=== PATIENT | male | born 1955 | race Caucasian/White ===

== ENCOUNTER 2016-10-16 00:07 | Inpatient (IN) | payer BC, OTHER ==
[~2016-10-16] VITALS: Ht 188 cm; Wt 114.8 kg
[2016-10-16] MEDS ORDERED: SODIUM CHLORIDE 0.9% 500ML 500 ML IV STA (00:27)
[2016-10-16] MEDS ORDERED: MoRPHine SULFATE 4 MG/ML 1 ML CARP\\VIAL IV STA (00:27)
[2016-10-16] MEDS ORDERED: ONDANSETRON INJ 2 MG/ML 2 ML VIAL IV STA (00:27)
[2016-10-16 00:43] LABS: ISTAT CREATININE 1.2 mg/dl (0.6-1.3); ISTAT HEMOGLOBIN 15.6 g/dl (14.0-18.0); ISTAT IONIZED CALCIUM 1.2 mmol/l (1.12-1.32)
[2016-10-16] MEDS ORDERED: OPTIRAY 320 IV PRN ×2 (00:45→11:30)
[2016-10-16 00:53] LABS: BASO % 0.3 %; BASO ABS # 0.03 K/uL (0-0.2); COMPLETE YES; EOS % 2.7 %; HEMATOCRIT 47.2 % (42-52); IG% 0.8 %; LYMPH % 28.7 %; MEAN CORPUSCULAR HEMOGLOBIN 32.9 pg (25-34); MEAN PLATELET VOLUME 11.3 fL (7.4-10.4); MONO % 8.8 %; NEUT % 58.7 %; PLATELET COUNT 230 K/uL (130-400); RED BLOOD COUNT 5.02 M/uL (4.7-6.1); WHITE BLOOD COUNT 11.14 K/uL (4.8-10.8)
[2016-10-16] MEDS ORDERED: MULT-506 PO (00:53)
[2016-10-16] MEDS ORDERED: CYAN100020 PO (00:54)
[2016-10-16] MEDS ORDERED: ZOLP10TA PO (00:55)
[2016-10-16] MEDS ORDERED: OXYC1TAB3 PO (00:55)
[2016-10-16 01:07] LABS: PARTIAL THROMBOPLASTIN RATIO 1.1; PROTHROMBIN TIME (PATIENT) 10.4 SECONDS (9.0-12.0)
[2016-10-16 01:13] LABS: ALT/SGPT 29 U/L (12-78); AST/SGOT 9 U/L (15-37); BLOOD UREA NITROGEN 20 mg/dl (7-18); BUN/CREATININE RATIO 16.7 (10-20); CALCIUM 8.7 mg/dl (8.5-10.1); CARBON DIOXIDE 31 mmol/L (21-32); CHLORIDE 102 mmol/L (98-107); GLUCOSE 111 mg/dl (70-99); POTASSIUM 3.8 mmol/L (3.5-5.1); SODIUM 140 mmol/L (136-145)
[2016-10-16 01:19] LABS: ALKALINE PHOSPHATASE 91 U/L (45-117)
[2016-10-16] MEDS ORDERED: HYDROmorphone INJ 1 MG/ML SYR IV STA (01:22)
[2016-10-16 01:25] LABS: C-REACTIVE PROTEIN 2.41 mg/dl (0-0.29)
[2016-10-16] MEDS ORDERED: METRONIDAZOLE 500MG / 100ML NSS IV STA (02:45)
[2016-10-16] MEDS ORDERED: CIPROFLOXACIN 400MG / 200ML D5W IV STA (02:45)
[2016-10-16] MEDS ORDERED: DiphenhydrAMINE HCL 50 MG/ML VIAL IV PRN (03:30)
[2016-10-16] MEDS ORDERED: MoRPHine SULFATE 2 MG/ML CARP IV PRN (03:30)
[2016-10-16] MEDS ORDERED: ONDANSETRON INJ 2 MG/ML 2 ML VIAL IV PRN (03:30)
[2016-10-16] MEDS ORDERED: ACETAMINOPHEN IV 100 ML IV PRN (03:30)
[2016-10-16] MEDS ORDERED: DICLOFENAC SOD 1% GEL 100 GM TUBE EXT STA (03:31)
[2016-10-16] MEDS ORDERED: PANTOprazole INJ 40 MG in SYRINGE 0 ML IV STA (03:31)
--- NOTE | 2016-10-16 04:14 | EMERGENCY ROOM VISIT NOTE ---
ED Visit Note First contact with patient: 00:12 I have personally evaluated and examined this patient. I agree with assessment and plan of Angelia Lanier PA-C. 61 yr old male with left lower chest/LUQ abdominal pain. Much improved on my evaluation of patient with only some discomfort with moving around. 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 Lactic acid normal and patient stable/comfortable. Does not examine like infarcted bowel. Will bring in for further monitoring/treatment.
--- NOTE | 2016-10-16 04:27 | History and Physical ---
History & Physical Date & Time of Service: Oct 16, 2016 at 04:10 Chief Complaint: Chest Pain Primary Care Physician: No Doctor, Assigned History of Present Illness Source: patient, family Social History Smoking Status: Never Smoker Smokeless Tobacco Use: No Alcohol Use: none Drug Use: none Marital Status: Housing status: lives with family Occupational Status: employed Multi-Drug Resistant Organisms History of MDRO: No Allergies Coded Allergies: No Known Allergies (Unverified , 10/16/16) Home Medications Scheduled Cyanocobalamin (Vitamin B12), PO DAILY Multivitamin (Multivitamin), 1 TAB PO DAILY Scheduled PRN Oxycodone Ir (Roxicodone Ir), 5 MG PO DIRECTED PRN for Pain Zolpidem Tartrate (Ambien), 10 MG PO HS PRN for Sleep Review of Systems The patient denies palpitations, lower extremity swelling, vision change, hearing change, sore throat, fevers, chills, sweats, weight change, fatigue, nausea, vomiting, pelvic pain, blood in urine or stool, dysuria, urinary frequency or urgency, lightheadedness, dizziness, headache, memory loss, rash, abnormal bruising or bleeding, imbalance, focal or generalized weakness, numbness or tingling in arms or legs, arthralgias or myalgias, back or neck pain , night sweats, or allergy symptoms. The review of systems is otherwise negative other than for that already noted above, and at least 10 systems have been reviewed. Physical Exam Vital Signs Date Time Temp Pulse Resp B/P Pulse Ox O2 Delivery O2 Flow Rate FiO2 10/16/16 03:58 37.3 73 22 138/94 96 10/16/16 03:47 73 22 96 Nasal Cannula 2.0 10/16/16 03:29 138/94 10/16/16 03:17 71 22 96 10/16/16 02:58 150/102 10/16/16 02:47 61 15 96 10/16/16 02:28 126/87 10/16/16 02:17 62 14 95 10/16/16 02:02 120/97 10/16/16 01:47 78 13 97 10/16/16 01:42 71 18 96 Nasal Cannula 2.0 10/16/16 01:28 127/83 10/16/16 01:12 80 16 139/88 96 Nasal Cannula 2.0 10/16/16 01:12 83 16 97 10/16/16 01:10 139/88 10/16/16 00:37 82 16 136/95 95 Nasal Cannula 2.0 10/16/16 00:37 95 10/16/16 00:36 10/16/16 00:21 91 20 127/104 95 Nasal Cannula 2.0 10/16/16 00:20 88 21 134/95 95 Room Air 2.0 10/16/16 00:20 127/104 10/16/16 00:19 96 Nasal Cannula 2.0 10/16/16 00:19 134/95 10/16/16 00:17 79 10/16/16 00:13 37.3 88 34 150/127 94 Room Air 10/16/16 00:12 Room Air 10/16/16 00:11 150/127 The patient is awake, well-developed and adequately nourished, alert and oriented 3, normocephalic and atraumatic, lying in bed and in no acute distress while lying still. HEENT--PERRL, EOMI, mucous membranes moist, and oropharynx normal. Neck--supple, no JVD or bruits, thyroid normal, trachea midline, no adenopathy. Heart--normal S1 and S2, no extra beats, no murmurs, rubs or gallops. Lungs--clear bilaterally with good air movement, no respiratory distress, no accessory muscle use. Abdomen--normal bowel sounds and soft, nontender and nondistended, no hernias or masses, no organomegaly. Extremities--no cyanosis, clubbing or edema. There are good distal pulses b/l. Dermatologic--normal skin turgor, normal color, warm and dry, no abnormal lymph nodes, no rash. Neurologic--cranial nerves II through XII grossly intact. Psychiatric--normal affect. Diagnostics Laboratory Results Results Past 24 Hours Test 10/16/16 00:16 10/16/16 00:24 10/16/16 00:32 10/16/16 01:42 Range/Units White Blood Count 11.14 4.8-10.8 K/uL Red Blood Count 5.02 4.7-6.1 M/uL Hemoglobin 16.5 14.0-18.0 g/dL Hematocrit 47.2 42-52 % Mean Corpuscular Volume 94.0 80-100 fL Mean Corpuscular Hemoglobin 32.9 25-34 pg Mean Corpuscular Hemoglobin Concent 35.0 32-36 g/dl Platelet Count 230 130-400 K/uL Mean Platelet Volume 11.3 7.4-10.4 fL Neutrophils (%) (Auto) 58.7 % Lymphocytes (%) (Auto) 28.7 % Monocytes (%) (Auto) 8.8 % Eosinophils (%) (Auto) 2.7 % Basophils (%) (Auto) 0.3 % Neutrophils # (Auto) 6.54 1.4-6.5 K/uL Lymphocytes # (Auto) 3.20 1.2-3.4 K/uL Monocytes # (Auto) 0.98 0.11-0.59 K/uL Eosinophils # (Auto) 0.30 0-0.5 K/uL Basophils # (Auto) 0.03 0-0.2 K/uL RDW Standard Deviation 46.2 36.4-46.3 fL RDW Coefficient of Variation 13.6 11.5-14.5 % Immature Granulocyte % (Auto) 0.8 % Immature Granulocyte # (Auto) 0.09 0.00-0.02 K/uL Erythrocyte Sedimentation Rate 10 0-14 mm/hr Prothrombin Time 10.4 9.0-12.0 SECONDS Prothromb Time International Ratio 1.0 0.9-1.1 Activated Partial Thromboplast Time 27.8 21.0-31.0 SECONDS Partial Thromboplastin Ratio 1.1 Sodium Level 140 136-145 mmol/L Potassium Level 3.8 3.5-5.1 mmol/L Chloride Level 102 98-107 mmol/L Carbon Dioxide Level 31 21-32 mmol/L Anion Gap 7.0 21.0 16-25 mmol/L Blood Urea Nitrogen 20 7-18 mg/dl Creatinine 1.20 0.60-1.40 mg/dl Est Creatinine Clear Calc Drug Dose 86.8 ml/min Estimated GFR () 75.2 Estimated GFR (Non- 64.9 BUN/Creatinine Ratio 16.7 10-20 Random Glucose 111 70-99 mg/dl Calcium Level 8.7 8.5-10.1 mg/dl Total Bilirubin 1.2 0.2-1 mg/dl Direct Bilirubin 0.2 0-0.2 mg/dl Aspartate Amino Transf (AST/SGOT) 9 15-37 U/L Alanine Aminotransferase (ALT/SGPT) 29 12-78 U/L Alkaline Phosphatase 91 45-117 U/L Total Creatine Kinase 48 39-308 U/L Creatine Kinase MB < 0.5 0.5-3.6 ng/ml Creatine Kinase MB Ratio 0-3.0 Troponin I < 0.015 0-0.045 ng/ml C-Reactive Protein 2.41 0-0.29 mg/dl Total Protein 7.8 6.4-8.2 gm/dl Albumin 3.8 3.4-5.0 gm/dl Lipase 248 73-393 U/L Bedside Hemoglobin 15.6 14.0-18.0 g/dl Bedside Hematocrit 46 42-52 % Bedside Sodium 140 135-144 mEq/L Bedside Potassium 3.9 3.3-5.0 mEq/L Bedside Chloride 98 101-112 mEq/L Bedside Total CO2 26 24-31 mEq/l Bedside Blood Urea Nitrogen 23 7-18 mg/dl Bedside Creatinine 1.2 0.6-1.3 mg/dl Bedside Glucose (other) 113 70-99 mg/dl Bedside Ionized Calcium (Florinda) 1.20 1.12-1.32 mmol/l Bedside Troponin I 0.000 0-0.045 ng/ml Bedside Lactic Acid Venous 0.82 0.90-1.70 mmol/L Test 10/16/16 03:26 10/16/16 03:50 Range/Units Creatine Kinase MB Ratio 0-3.0 Diagnostic Radiology Chest x-ray shows no acute findings. 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 Normal EKG Impression Assessment and Plan Left abdomen, lower chest wall and flank pain--patient reports that symptoms are very severe and sharp, with any type of movement. The symptoms initially began after he was laughing heavily. He also does take anywhere from 400 to 1200 mg of ibuprofen daily due to persistent pain status post right total knee arthroplasty since July. He'll be admitted to the telemetry unit for serial cardiac enzymes, cardiac rhythm monitoring, and a 2-D echocardiogram with Dopplers. We'll also consult GI, with concerns regarding a possible ulcer due to excessive use of NSAIDs without GI protection. His notes that he takes several Tums daily. We'll place on Protonix 40 mg IV daily, and keep nothing by mouth for any possible procedures. We'll place on Voltaren gel, to Apply topically overinvolved area. Do not see any signs of rash to suggest shingles infection. 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 Chan, who felt the patient can be admitted to the medical service. Question of a peripherally located air within the abdominal cavity--case was reviewed by Dr. Singh from surgery, who felt there was no acute issue there, and the patient no symptoms referable to the abdomen. Level of Care Telemetry Advanced Directives Existing Advance Directive: No Existing Living Will: No Existing Power of Plate Grainer Apprentice: No Resuscitation Status FULL RESUSCITATION VTE Prophylaxis VTE Risk Assessment Done? Y/N: Yes Risk Level: Moderate Given or contraindicated: SCD's Social Service Consult None Apply
[2016-10-16] MEDS ORDERED: IV FLUIDS COMPLETED PRN (04:30)
[2016-10-16 05:13] VITALS: BP 132/84; PULSE 63; TEMP 36.8; O2SAT 95; Ht 188 cm; Wt 114.8 kg
--- NOTE | 2016-10-16 05:31 | Medical Consult ---
Consultation Date of Consultation: Oct 16, 2016. Attending Physician: Chad Quiroz M.D. Reason for Consultation: possible early pneumatosis intestinalis History of Present Illness to ER w/ Lt lower lateral/flank chest pain laly with movement- after laughing episode. CT found possible pelvic bubbles in bowel wall vs intraluminal air. Pt has no abd sxs, no lower abd tenderness. Lactate normal Social History Smoking Status: Never Smoker Smokeless Tobacco Use: No Alcohol Use: none Drug Use: none Marital Status: Occupation Status: employed Allergies Coded Allergies: No Known Allergies (Unverified , 10/16/16) Current Inpatient Medications Current Inpatient Medications Medications (Trade) Dose Ordered Sig/Flynn Route Start Time Stop Time Status Last Admin Dose Admin Ioversol 100 ml 100 ml UD PRN IV 10/16/16 00:45 10/20/16 00:44 Potassium Chloride/Sodium Chloride (Nss + 20meq KCl 1000ml) 1,000 ml @ 100 mls/hr Q10H IV 10/16/16 04:45 11/15/16 04:44 Ondansetron HCl 4 mg 4 mg Q6H PRN IV 10/16/16 03:30 11/15/16 03:29 Acetaminophen (Ofirmev Iv) 100 ml @ 400 mls/hr Q8H PRN IV 10/16/16 03:30 11/15/16 03:29 Diphenhydramine HCl (Benadryl Inj) 25 mg Q4H PRN IV 10/16/16 03:30 11/15/16 03:29 Morphine Sulfate (MoRPHine SULFATE INJ) 2 mg Q2H PRN IV 10/16/16 03:30 10/30/16 03:29 Morphine Sulfate 4 mg 4 mg Q2H PRN IV 10/16/16 03:30 10/30/16 03:29 Pantoprazole Sodium/Syringe (Protonix Inj/ Syringe) 10 ml @ 5 mls/min DAILY@11 IV 10/16/16 11:00 11/15/16 10:59 Diclofenac Sodium (Voltaren 1% Top Gel) 1 appln QID EXT 10/16/16 09:00 11/15/16 08:59 Miscellaneous (Iv Fluids Completed) 1 ea PRN PRN N/A 10/16/16 04:30 10/16/17 04:29 Review of Systems Constitutional: No chills, No fever Eyes: No eye pain Respiratory: No cough, No shortness of breath, No sputum Cardiovascular: + chest pain Abdomen: No nausea, No pain, No vomiting Musculoskeletal: + joint pain Genitourinary - Male: No hematuria Neurologic: No memory loss Endocrine: No fatigue Integumentary: No rash Physical Exam Date Time Temp Pulse Resp B/P Pulse Ox O2 Delivery O2 Flow Rate FiO2 10/16/16 03:58 37.3 73 22 138/94 96 10/16/16 03:47 73 22 96 Nasal Cannula 2.0 10/16/16 03:29 138/94 10/16/16 03:17 71 22 96 10/16/16 02:58 150/102 10/16/16 02:47 61 15 96 10/16/16 02:28 126/87 10/16/16 02:17 62 14 95 10/16/16 02:02 120/97 10/16/16 01:47 78 13 97 10/16/16 01:42 71 18 96 Nasal Cannula 2.0 10/16/16 01:28 127/83 10/16/16 01:12 80 16 139/88 96 Nasal Cannula 2.0 10/16/16 01:12 83 16 97 10/16/16 01:10 139/88 10/16/16 00:37 82 16 136/95 95 Nasal Cannula 2.0 10/16/16 00:37 95 10/16/16 00:36 10/16/16 00:21 91 20 127/104 95 Nasal Cannula 2.0 10/16/16 00:20 88 21 134/95 95 Room Air 2.0 10/16/16 00:20 127/104 10/16/16 00:19 96 Nasal Cannula 2.0 10/16/16 00:19 134/95 10/16/16 00:17 79 10/16/16 00:13 37.3 88 34 150/127 94 Room Air 10/16/16 00:12 Room Air 10/16/16 00:11 150/127 General Appearance: no apparent distress Head: atraumatic Eyes: sclerae normal Neck: supple Respiratory/Chest: no respiratory distress Cardiovascular: regular rate, rhythm Abdomen/GI: normal bowel sounds, non tender, soft Back: normal inspection, + left CVA tenderness Extremities/Musculoskelatal: normal inspection Neurologic/Psych: alert, normal mood/affect Skin: no rash Laboratory Results Last 24 Hours Test 10/16/16 00:16 10/16/16 00:24 10/16/16 00:32 10/16/16 01:42 White Blood Count 11.14 K/uL Red Blood Count 5.02 M/uL Hemoglobin 16.5 g/dL Hematocrit 47.2 % Mean Corpuscular Volume 94.0 fL Mean Corpuscular Hemoglobin 32.9 pg Mean Corpuscular Hemoglobin Concent 35.0 g/dl Platelet Count 230 K/uL Mean Platelet Volume 11.3 fL Neutrophils (%) (Auto) 58.7 % Lymphocytes (%) (Auto) 28.7 % Monocytes (%) (Auto) 8.8 % Eosinophils (%) (Auto) 2.7 % Basophils (%) (Auto) 0.3 % Neutrophils # (Auto) 6.54 K/uL Lymphocytes # (Auto) 3.20 K/uL Monocytes # (Auto) 0.98 K/uL Eosinophils # (Auto) 0.30 K/uL Basophils # (Auto) 0.03 K/uL RDW Standard Deviation 46.2 fL RDW Coefficient of Variation 13.6 % Immature Granulocyte % (Auto) 0.8 % Immature Granulocyte # (Auto) 0.09 K/uL Erythrocyte Sedimentation Rate 10 mm/hr Prothrombin Time 10.4 SECONDS Prothromb Time International Ratio 1.0 Activated Partial Thromboplast Time 27.8 SECONDS Partial Thromboplastin Ratio 1.1 Sodium Level 140 mmol/L Potassium Level 3.8 mmol/L Chloride Level 102 mmol/L Carbon Dioxide Level 31 mmol/L Anion Gap 7.0 mmol/L 21.0 mmol/L Blood Urea Nitrogen 20 mg/dl Creatinine 1.20 mg/dl Est Creatinine Clear Calc Drug Dose 86.8 ml/min Estimated GFR () 75.2 Estimated GFR (Non- 64.9 BUN/Creatinine Ratio 16.7 Random Glucose 111 mg/dl Calcium Level 8.7 mg/dl Total Bilirubin 1.2 mg/dl Direct Bilirubin 0.2 mg/dl Aspartate Amino Transf (AST/SGOT) 9 U/L Alanine Aminotransferase (ALT/SGPT) 29 U/L Alkaline Phosphatase 91 U/L Total Creatine Kinase 48 U/L Creatine Kinase MB < 0.5 ng/ml Creatine Kinase MB Ratio Troponin I < 0.015 ng/ml C-Reactive Protein 2.41 mg/dl Total Protein 7.8 gm/dl Albumin 3.8 gm/dl Lipase 248 U/L Bedside Hemoglobin 15.6 g/dl Bedside Hematocrit 46 % Bedside Sodium 140 mEq/L Bedside Potassium 3.9 mEq/L Bedside Chloride 98 mEq/L Bedside Total CO2 26 mEq/l Bedside Blood Urea Nitrogen 23 mg/dl Bedside Creatinine 1.2 mg/dl Bedside Glucose (other) 113 mg/dl Bedside Ionized Calcium (Florinda) 1.20 mmol/l Bedside Troponin I 0.000 ng/ml Bedside Lactic Acid Venous 0.82 mmol/L Test 10/16/16 03:50 Total Creatine Kinase 33 U/L Creatine Kinase MB < 0.5 ng/ml Creatine Kinase MB Ratio Troponin I < 0.015 ng/ml Assessment & Plan 10/16/16- for evaluation of Lt lower, lateral chest pain. No abd sxs- do not think pt has ischemic bowel or significant pneumatosis intestinalis. Will follow as needed and review scan with our radiologist
[2016-10-16] MEDS: NSS + 20MEQ KCL 1000ML 1,000 ML IV SCH ×2 (05:50→14:21)
--- NOTE | 2016-10-16 07:11 | DIAGNOSTIC IMAGING REPORT ---
SINGLE VIEW CHEST CLINICAL HISTORY: Atypical chest pain. FINDINGS: An AP, portable, upright chest radiograph is obtained. No prior studies are available for comparison at the time of dictation. The examination is degraded by portable technique and patient rotation. The heart is enlarged. The pulmonary vasculature is noncongested. There are low lung volumes with bibasilar atelectasis. No airspace consolidation or large pleural effusion is identified. No pneumothorax is seen. The bony thorax is grossly intact. Fusion hardware is partially imaged in the lower cervical spine. IMPRESSION: 1. Cardiomegaly without radiographic evidence of congestive failure. 2. Low lung volumes with bibasilar atelectasis. There is no airspace consolidation typical for pneumonia or large pleural effusion. Electronically signed by: Brooks Spencer M.D. 10/16/2016 7:09 AM Dictated Date/Time: 10/16/2016 7:08 AM
--- NOTE | 2016-10-16 07:37 | DIAGNOSTIC IMAGING REPORT ---
CT ANGIOGRAM OF THE CHEST, ABDOMEN, AND PELVIS COMBO CLINICAL HISTORY: Atypical chest pain. COMPARISON STUDY: Chest x-ray dated 10/16/2016. TECHNIQUE: Before and following the IV administration of 118 cc of Optiray 320, CT angiogram of the chest, abdomen, and pelvis was performed from the thoracic inlet to the proximal femora. Images are reviewed in the axial, sagittal, and coronal planes. 3-D MIPS images are created and assessed. IV contrast was administered without complication. Automated dose control exposure was utilized. CT DOSE: 3193.33 mGy.cm FINDINGS: CHEST: Thyroid: Imaged portions of the thyroid gland are normal in size and attenuation. Thoracic aorta: No intramural hematoma is identified on the unenhanced series. There is minimal atherosclerotic calcification of the thoracic aorta, which is normal in course caliber and demonstrates standard 3-vessel arch anatomy. No dissection is seen. The arch vessels are widely patent. Heart: The heart is enlarged and without pericardial effusion. There are coronary artery calcifications. The pulmonary trunk is normal in caliber. The pulmonary vessels are not well opacified. Lungs and pleural spaces: There are low lung volumes and bibasilar atelectasis. A trace left pleural effusion is seen. The trachea and central airways are clear. Mediastinum: There is no mediastinal lymphadenopathy. Elisa: Clear. Axillae: There is no axillary lymphadenopathy. Bony thorax: The bony thorax appears intact. No destructive bony lesions are identified. Fusion hardware is noted in the lower cervical spine. ABDOMEN AND PELVIS: Liver: The contrast-enhanced liver is normal in size, contour, and attenuation. There is no intrahepatic biliary ductal dilatation. A 9 mm hypervascular focus is noted in the right lower image #300. The main portal veins appear patent. Mixing artifact is incidentally noted in the superior mesenteric vein. Gallbladder: Unremarkable. Spleen: Normal in size and attenuation noting heterogeneous arterial phase enhancement. Pancreas: Unremarkable. Adrenal glands: Unremarkable. Kidneys: No renal calculi are identified on the unenhanced series. The contrast enhanced kidneys are normal in size and without hydronephrosis. The kidneys enhance symmetrically. Abdominal aorta and iliac arteries: There is mild atherosclerotic calcification of the abdominal aorta and iliac arteries. The abdominal aorta is normal in caliber. The abdominal aorta and iliac arteries are widely patent. No dissection is seen. Major branches of the abdominal aorta: The celiac trunk, superior mesenteric, and inferior mesenteric arteries are widely patent. 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 There is a focal/contained dissection. The vessel is widely patent. The dissection originates approximately 2.7 cm from the abdominal aorta and extends at least 2.5 cm in length. This is best seen on axial image #361. Hepatic arterial anatomy is conventional. The splenic artery is patent. Single bilateral renal arteries are widely patent. Stomach and bowel: There is a small hiatal hernia. The stomach and duodenum are otherwise normal in configuration. There is no bowel obstruction. There are scattered colonic diverticula without CT evidence of acute diverticulitis. Colonic interposition is incidentally noted. The appendix is well-visualized and normal. Peritoneum: There is no intraperitoneal free air or abdominal ascites. There is a fat-containing umbilical hernia. Lymphadenopathy: None. Pelvic viscera: The bladder, prostate, and seminal vesicles are normal as visualized. Skeletal structures: There is mild lumbosacral spondylosis. No destructive bony lesions are seen. IMPRESSION: 1. There is no aneurysm or dissection identified involving the thoracic or abdominal aorta. 2. 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 The vessel is widely patent. 3. Otherwise unremarkable CT angiogram of the major branches of the abdominal aorta. 4. Low lung volumes and significant bibasilar atelectasis. 5. Trace left pleural effusion. 6. There are no acute infectious or inflammatory findings in the abdomen or pelvis. 7. There is a 9 mm hypervascular focus in the right lobe of the liver. This is indeterminant and may represent a flash filling hemangioma. Consider follow-up with a nonemergent ultrasound of the liver for further assessment. 8. Cardiomegaly. 9. Additional findings as above. Electronically signed by: Brooks Spencer M.D. 10/16/2016 7:35 AM Dictated Date/Time: 10/16/2016 7:22 AM
[2016-10-16 08:00] VITALS: BP 130/85; PULSE 65; TEMP 36.8; O2SAT 97
[2016-10-16] MEDS: DICLOFENAC SOD 1% GEL 100 GM TUBE EXT SCH ×4 (08:35→20:51)
[2016-10-16] MEDS ORDERED: PERFLUTREN LIPID MICROSPHERE (DEFINITY) IV ONE (09:43)
--- NOTE | 2016-10-16 10:26 | Gastrointestinal Consultation ---
Gastrointestinal Consultation Date of Consultation: Oct 16, 2016 Attending Physician: Dr. Vazquez Consulting Physician: Hodan Dillon PA-C Reason for Consultation: Flank pain, NSAID use History of Present Illness Nima is a 61 year old male who presents to the hospital with left lower chest wall and flank pain that he describes as sharp and severe. Pain is worsened with movement, but is not reported to be worsened with food. He reports that these symptoms were prompted by an episode of excessive laughter. He reports that he had knee surgery in July 2016 and since that time has been taking 400-1200 mg Ibuprofen daily. He denies changes in his bowel habits. He denies hematochezia or melena. His labs do not appear to be largely remarkable from a GI standpoint. 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 It appears that vascular surgery has been consulted. Imaging also indicated peripherally located air within the abdominal cavity. General surgery has evaluated the patient and they do not feel that there is an acute process occurring. An incidental 9 mm hypervascular focus was noted in the right lobe of the liver possibly representing a hemangioma. GI has been consulted due to his NSAID use. Past Medical/Surgical History Flank pain, SMA aneurysm Past Medical History: DJD Past Surgical History: Knee replacement Social History Smoking Status: Never Smoker Drug Use: none Marital Status: Occupation Status: employed Allergies Coded Allergies: No Known Allergies (Unverified , 10/16/16) Current Medications Home Meds and Scripts Medications Dose Route/Sig Max Daily Dose Days Date Category Roxicodone Ir (Oxycodone HCl) 5 Mg Tab 5 Mg PO DIRECTED PRN 10/16/16 Reported Ambien (Zolpidem Tartrate) 10 Mg Tab 10 Mg PO HS PRN 10/16/16 Reported Vitamin B12 (Cyanocobalamin) 1,000 Mcg Tab PO DAILY 10/16/16 Reported Multivitamin (Multivitamins) Tab 1 Tab PO DAILY 10/16/16 Reported Review of Systems Constitutional: No problem reported Eyes: No problem reported Respiratory: No cough, No dyspnea on exertion, No shortness of breath Cardiac: No chest pain Abdomen: No GI bleeding, No constipation, No diarrhea, No nausea, No pain, No vomiting Musculoskeletal: + joint pain, + problem reported (flank pain) Skin: No problem reported Physical Exam Date Time Temp Pulse Resp B/P Pulse Ox O2 Delivery O2 Flow Rate FiO2 10/16/16 08:00 Room Air 10/16/16 08:00 36.8 65 14 130/85 97 Room Air 10/16/16 05:13 36.8 63 14 132/84 95 Room Air 10/16/16 03:58 37.3 73 22 138/94 96 10/16/16 03:47 73 22 96 Nasal Cannula 2.0 10/16/16 03:29 138/94 10/16/16 03:17 71 22 96 10/16/16 02:58 150/102 10/16/16 02:47 61 15 96 10/16/16 02:28 126/87 10/16/16 02:17 62 14 95 10/16/16 02:02 120/97 10/16/16 01:47 78 13 97 10/16/16 01:42 71 18 96 Nasal Cannula 2.0 10/16/16 01:28 127/83 10/16/16 01:12 80 16 139/88 96 Nasal Cannula 2.0 10/16/16 01:12 83 16 97 10/16/16 01:10 139/88 10/16/16 00:37 82 16 136/95 95 Nasal Cannula 2.0 10/16/16 00:37 95 10/16/16 00:36 10/16/16 00:21 91 20 127/104 95 Nasal Cannula 2.0 10/16/16 00:20 88 21 134/95 95 Room Air 2.0 10/16/16 00:20 127/104 10/16/16 00:19 96 Nasal Cannula 2.0 10/16/16 00:19 134/95 10/16/16 00:17 79 10/16/16 00:13 37.3 88 34 150/127 94 Room Air 10/16/16 00:12 Room Air 10/16/16 00:11 150/127 General Appearance: WD/WN, no apparent distress Eyes: normal inspection, PERRL Respiratory/Chest: lungs clear Cardiovascular: regular rate, rhythm Abdomen: normal bowel sounds, non tender, soft Extremities: non-tender Neurologic/Psych: alert, oriented x 3 Skin: normal color Laboratory Results Last 24 Hours Test 10/16/16 00:16 10/16/16 00:24 10/16/16 00:32 10/16/16 01:42 White Blood Count 11.14 K/uL Red Blood Count 5.02 M/uL Hemoglobin 16.5 g/dL Hematocrit 47.2 % Mean Corpuscular Volume 94.0 fL Mean Corpuscular Hemoglobin 32.9 pg Mean Corpuscular Hemoglobin Concent 35.0 g/dl Platelet Count 230 K/uL Mean Platelet Volume 11.3 fL Neutrophils (%) (Auto) 58.7 % Lymphocytes (%) (Auto) 28.7 % Monocytes (%) (Auto) 8.8 % Eosinophils (%) (Auto) 2.7 % Basophils (%) (Auto) 0.3 % Neutrophils # (Auto) 6.54 K/uL Lymphocytes # (Auto) 3.20 K/uL Monocytes # (Auto) 0.98 K/uL Eosinophils # (Auto) 0.30 K/uL Basophils # (Auto) 0.03 K/uL RDW Standard Deviation 46.2 fL RDW Coefficient of Variation 13.6 % Immature Granulocyte % (Auto) 0.8 % Immature Granulocyte # (Auto) 0.09 K/uL Erythrocyte Sedimentation Rate 10 mm/hr Prothrombin Time 10.4 SECONDS Prothromb Time International Ratio 1.0 Activated Partial Thromboplast Time 27.8 SECONDS Partial Thromboplastin Ratio 1.1 Sodium Level 140 mmol/L Potassium Level 3.8 mmol/L Chloride Level 102 mmol/L Carbon Dioxide Level 31 mmol/L Anion Gap 7.0 mmol/L 21.0 mmol/L Blood Urea Nitrogen 20 mg/dl Creatinine 1.20 mg/dl Est Creatinine Clear Calc Drug Dose 86.8 ml/min Estimated GFR () 75.2 Estimated GFR (Non- 64.9 BUN/Creatinine Ratio 16.7 Random Glucose 111 mg/dl Calcium Level 8.7 mg/dl Total Bilirubin 1.2 mg/dl Direct Bilirubin 0.2 mg/dl Aspartate Amino Transf (AST/SGOT) 9 U/L Alanine Aminotransferase (ALT/SGPT) 29 U/L Alkaline Phosphatase 91 U/L Total Creatine Kinase 48 U/L Creatine Kinase MB < 0.5 ng/ml Creatine Kinase MB Ratio Troponin I < 0.015 ng/ml C-Reactive Protein 2.41 mg/dl Total Protein 7.8 gm/dl Albumin 3.8 gm/dl Lipase 248 U/L Bedside Hemoglobin 15.6 g/dl Bedside Hematocrit 46 % Bedside Sodium 140 mEq/L Bedside Potassium 3.9 mEq/L Bedside Chloride 98 mEq/L Bedside Total CO2 26 mEq/l Bedside Blood Urea Nitrogen 23 mg/dl Bedside Creatinine 1.2 mg/dl Bedside Glucose (other) 113 mg/dl Bedside Ionized Calcium (Florinda) 1.20 mmol/l Bedside Troponin I 0.000 ng/ml Bedside Lactic Acid Venous 0.82 mmol/L Test 10/16/16 03:50 Total Creatine Kinase 33 U/L Creatine Kinase MB < 0.5 ng/ml Creatine Kinase MB Ratio Troponin I < 0.015 ng/ml Impression Patient is a 61 year old male with flank pain & NSAID use. CT indicates a focal/ contained 16 mm dissecting SMA aneurysm for which vascular surgery has been consulted. General surgery has been following for abnormal findings of peripherally located air within the abdominal cavity. Plan 1) In the absence of GI bleeding and in the setting of vascular abnormalities, would treat conservatively rather than pursue endoscopic evaluation for the concern of an NSAID-induced ulcer. Would give Protonix 40 mg BID & Carafate 1 gm four times daily. Avoid NSAIDs. 2) Recommend consideration of ultrasound imaging to further evaluate the 9 mm hypervascular focus in the liver possibly representing a hemangioma. 3) Supportive care per primary team. Thank you for allowing us to participate in the care of this patient. If you should have any further questions or concerns, do not hesitate to contact us. Agree with BERRY Ceja as above Abd: Soft, NT, ND, +BS Continue current therapy including Protonix 40mg BID and Carafate 1g QID AC and HS
[2016-10-16] MEDS ORDERED: PANTOprazole INJ 40 MG in SYRINGE 0 ML IV SCH (11:00)
[2016-10-16 11:25] VITALS: BP 131/85; PULSE 74; TEMP 36.7; O2SAT 97
[2016-10-16] MEDS ORDERED: LIDODERM (LIDOCAINE) PATCH 5% TD ONE (11:45)
--- NOTE | 2016-10-16 12:11 | ECHOCARDIOGRAM REPORT ---
*NOTICE TO RECEIVING REPUBLICAN AGENCY This information is strictly Confidential and protected under [place] law. [place] law prohibits you from making any further disclosure of this information unless further disclosure is expressly permitted by the written consent of the person to whom it pertains or is authorized by law. A general authorization for the release of medical or other information is not sufficient for this purpose. Hospital accepts no responsibility if the information is made available to any other person, INCLUDING THE PATIENT. Interpretation Summary * Name: EBER JUAN Study Date: 10/16/2016 10:17 AM BP: 130/85 mmHg * Patient Location: [facility] HR: 65 * : 1955 (M/d/yyyy) Gender: Male Height: 74 in * Age: 61 yrs Ethnicity: CA Weight: 251 lb * Ordering Physician: Chad Quiroz * Referring Physician: Self, Referred * Performed By: Shala De La Cruz RDCS * * Reason For Study: CHEST PAIN * BSA: 2.4 m2 * History: CHEST PAIN * -- Conclusions -- * Left ventricular systolic function is normal. * No regional wall motion abnormalities noted. * Ejection Fraction = 55-60%. * There is borderline concentric left ventricular hypertrophy. * Mild aortic root dilatation. Procedure Details * A contrast injection of Definity was performed to improve assessment of LV function. * Contrast was injected into an intravenous site in the left arm. * One vial of Definity ultrasound contrast was diluted in normal saline to a total volume of 10 ml. A total of '3' ml of solution was administered during imaging. * Lot # [id number] of Definity utilized for procedure. * Expiration date MAR 23. * The attending nurse who injected the contrast agent was MART TAYLOR RN. Left Ventricle * The left ventricle is normal in size. * There is borderline concentric left ventricular hypertrophy. * Ejection Fraction = 55-60%. * Left ventricular systolic function is normal. * No regional wall motion abnormalities noted. Right Ventricle * The right ventricle is not well visualized. * Right ventricular function cannot be assessed due to poor image quality. Atria * Borderline left atrial enlargement. * Right atrium not well visualized. * There is no evidence of atrial septal defect, but resolution does not allow assessment for a patent foramen ovale. Mitral Valve * The mitral valve is grossly normal. * There is no mitral valve stenosis. * Significant mitral regurgitation is absent. Tricuspid Valve * The tricuspid valve is not well visualized. * Significant tricuspid regurgitation is absent. Aortic Valve * The aortic valve is trileaflet. * The aortic valve opens well. * No hemodynamically significant valvular aortic stenosis. * There is no significant aortic regurgitation. Pulmonic Valve * The pulmonary valve is not well seen, but the Doppler examination is normal without significant regurgitation or stenosis. Great Vessels * Mild aortic root dilatation. Pericardium/Pleural * There is no pericardial effusion. Great Vessels * Normal inferior vena cava size and collapsability with sniff indicates a normal right atrial pressure of 3 mmHg MMode 2D Measurements and Calculations IVSd 1.4 cm IVSs 1.7 cm LVIDd 4.4 cm LVIDs 2.9 cm LVPWd 1.4 cm LVPWs 1.6 cm IVS/LVPW 1.0 FS 33.4 % EDV(Teich) 87.1 ml ESV(Teich) 32.8 ml EF(Teich) 62.3 % EDV(cubed) 84.5 ml ESV(cubed) 25.0 ml EF(cubed) 70.4 % % IVS thick 23.1 % % LVPW thick 14.1 % LV mass(C)d 239.1 grams LV mass(C)dI 99.8 grams/m\S\2 LV mass(C)s 182.2 grams LV mass(C)sI 76.1 grams/m\S\2 SV(Teich) 54.3 ml SI(Teich) 22.7 ml/m\S\2 SV(cubed) 59.5 ml SI(cubed) 24.9 ml/m\S\2 Ao root diam 3.9 cm Ao root area 11.7 cm\S\2 LA dimension 3.8 cm LA/Ao 0.98 LVAd ap4 40.4 cm\S\2 LVLd ap4 9.9 cm EDV(MOD-sp4) 134.5 ml EDV(sp4-el) 140.3 ml LVAs ap4 23.2 cm\S\2 LVLs ap4 7.6 cm ESV(MOD-sp4) 61.2 ml ESV(sp4-el) 60.1 ml EF(MOD-sp4) 54.5 % EF(sp4-el) 57.2 % LVAd ap2 25.5 cm\S\2 LVLd ap2 8.2 cm EDV(MOD-sp2) 64.7 ml EDV(sp2-el) 67.5 ml LVAs ap2 15.3 cm\S\2 LVLs ap2 6.7 cm ESV(MOD-sp2) 27.7 ml ESV(sp2-el) 29.7 ml EF(MOD-sp2) 57.2 % EF(sp2-el) 56.0 % LVLd %diff -20.91 % EDV(MOD-bp) 102.3 ml LVLs %diff -13.14 % ESV(MOD-bp) 40.8 ml EF(MOD-bp) 60.1 % SV(MOD-sp4) 73.4 ml SI(MOD-sp4) 30.6 ml/m\S\2 SV(MOD-sp2) 37.0 ml SI(MOD-sp2) 15.5 ml/m\S\2 SV(MOD-bp) 61.4 ml SI(MOD-bp) 25.7 ml/m\S\2 SV(sp4-el) 80.3 ml SI(sp4-el) 33.5 ml/m\S\2 SV(sp2-el) 37.8 ml SI(sp2-el) 15.8 ml/m\S\2 Doppler Measurements and Calculations MV E max gary 50.8 cm/sec MV A max gary 55.0 cm/sec MV E/A 0.92 MV dec time 0.34 sec Ao V2 max 111.3 cm/sec Ao max PG 5.0 mmHg Ao max PG (full) 0.38 mmHg LV V1 max PG 4.6 mmHg LV V1 max 106.9 cm/sec
--- NOTE | 2016-10-16 14:16 | Progress Note ---
Subjective Date of Service: Oct 16, 2016. Subjective Pt evaluation today including: conversation w/ patient, physical exam, chart review, lab review, review of studies, review of inpatient medication list ongoing L lower chest pain - started when it woke him from sleep late last night /early this AM. hurts to breathe, but no sob. hurts with movement. no heavy/ repetitive or strenuous lifting last few days, but did have a lot of laughing. no cough. no f/c/s. no abdominal pain, no nausea/vomiting no dysuria, hematuria ROS otherwise negative except for as above Review of Systems ros otherwise negative except for as above Objective Vital Signs Date Time Temp Pulse Resp B/P Pulse Ox O2 Delivery O2 Flow Rate FiO2 10/16/16 12:15 Room Air 2.0 Nasal Cannula 10/16/16 11:25 36.7 74 16 131/85 97 Nasal Cannula 2.0 10/16/16 08:00 Room Air 10/16/16 08:00 36.8 65 14 130/85 97 Room Air 10/16/16 05:13 36.8 63 14 132/84 95 Room Air 10/16/16 03:58 37.3 73 22 138/94 96 10/16/16 03:47 73 22 96 Nasal Cannula 2.0 10/16/16 03:29 138/94 10/16/16 03:17 71 22 96 10/16/16 02:58 150/102 10/16/16 02:47 61 15 96 10/16/16 02:28 126/87 10/16/16 02:17 62 14 95 10/16/16 02:02 120/97 10/16/16 01:47 78 13 97 10/16/16 01:42 71 18 96 Nasal Cannula 2.0 10/16/16 01:28 127/83 10/16/16 01:12 80 16 139/88 96 Nasal Cannula 2.0 10/16/16 01:12 83 16 97 10/16/16 01:10 139/88 10/16/16 00:37 82 16 136/95 95 Nasal Cannula 2.0 10/16/16 00:37 95 10/16/16 00:36 10/16/16 00:21 91 20 127/104 95 Nasal Cannula 2.0 10/16/16 00:20 88 21 134/95 95 Room Air 2.0 10/16/16 00:20 127/104 10/16/16 00:19 96 Nasal Cannula 2.0 10/16/16 00:19 134/95 10/16/16 00:17 79 10/16/16 00:13 37.3 88 34 150/127 94 Room Air 10/16/16 00:12 Room Air 10/16/16 00:11 150/127 Physical Exam General Appearance: no apparent distress (then when he moves he appears in a significant amount of pain) Eyes: EOMI ENT: hearing grossly normal Neck: trachea midline Respiratory/Chest: no respiratory distress, no accessory muscle use, + decreased breath sounds (base L, with faint basilar rales) Cardiovascular: regular rate, rhythm Abdomen: non tender, soft, no organomegaly Extremities: normal range of motion, no pedal edema, no calf tenderness Neurologic/Psychiatric: emergency room clinician II-XII nml as tested, alert, normal mood/affect Skin: normal color, warm/dry Laboratory Results Last 24 Hours Test 10/16/16 00:16 10/16/16 00:24 10/16/16 00:32 10/16/16 01:42 White Blood Count 11.14 K/uL Red Blood Count 5.02 M/uL Hemoglobin 16.5 g/dL Hematocrit 47.2 % Mean Corpuscular Volume 94.0 fL Mean Corpuscular Hemoglobin 32.9 pg Mean Corpuscular Hemoglobin Concent 35.0 g/dl Platelet Count 230 K/uL Mean Platelet Volume 11.3 fL Neutrophils (%) (Auto) 58.7 % Lymphocytes (%) (Auto) 28.7 % Monocytes (%) (Auto) 8.8 % Eosinophils (%) (Auto) 2.7 % Basophils (%) (Auto) 0.3 % Neutrophils # (Auto) 6.54 K/uL Lymphocytes # (Auto) 3.20 K/uL Monocytes # (Auto) 0.98 K/uL Eosinophils # (Auto) 0.30 K/uL Basophils # (Auto) 0.03 K/uL RDW Standard Deviation 46.2 fL RDW Coefficient of Variation 13.6 % Immature Granulocyte % (Auto) 0.8 % Immature Granulocyte # (Auto) 0.09 K/uL Erythrocyte Sedimentation Rate 10 mm/hr Prothrombin Time 10.4 SECONDS Prothromb Time International Ratio 1.0 Activated Partial Thromboplast Time 27.8 SECONDS Partial Thromboplastin Ratio 1.1 Sodium Level 140 mmol/L Potassium Level 3.8 mmol/L Chloride Level 102 mmol/L Carbon Dioxide Level 31 mmol/L Anion Gap 7.0 mmol/L 21.0 mmol/L Blood Urea Nitrogen 20 mg/dl Creatinine 1.20 mg/dl Est Creatinine Clear Calc Drug Dose 86.8 ml/min Estimated GFR () 75.2 Estimated GFR (Non- 64.9 BUN/Creatinine Ratio 16.7 Random Glucose 111 mg/dl Calcium Level 8.7 mg/dl Total Bilirubin 1.2 mg/dl Direct Bilirubin 0.2 mg/dl Aspartate Amino Transf (AST/SGOT) 9 U/L Alanine Aminotransferase (ALT/SGPT) 29 U/L Alkaline Phosphatase 91 U/L Total Creatine Kinase 48 U/L Creatine Kinase MB < 0.5 ng/ml Creatine Kinase MB Ratio Troponin I < 0.015 ng/ml C-Reactive Protein 2.41 mg/dl Total Protein 7.8 gm/dl Albumin 3.8 gm/dl Lipase 248 U/L Bedside Hemoglobin 15.6 g/dl Bedside Hematocrit 46 % Bedside Sodium 140 mEq/L Bedside Potassium 3.9 mEq/L Bedside Chloride 98 mEq/L Bedside Total CO2 26 mEq/l Bedside Blood Urea Nitrogen 23 mg/dl Bedside Creatinine 1.2 mg/dl Bedside Glucose (other) 113 mg/dl Bedside Ionized Calcium (Florinda) 1.20 mmol/l Bedside Troponin I 0.000 ng/ml Bedside Lactic Acid Venous 0.82 mmol/L Test 10/16/16 03:50 10/16/16 11:57 Total Creatine Kinase 33 U/L 27 U/L Creatine Kinase MB < 0.5 ng/ml < 0.5 ng/ml Creatine Kinase MB Ratio Troponin I < 0.015 ng/ml < 0.015 ng/ml Assessment and Plan L lower chest pain -ddx seems MSK (rib related - fits with hx and mostly with exam, fits with essentially 'nil w/u thus far) > PE (reviewed CT angio - can't really see pulmonary arteries well - d/w pt will check true CT chest for PE) > other developing lung pathology (?early pneumonia masquarading as atelectasis - would anticipate sx to develop and/or radiologic changes if this was the case) > shingles about to develop. aortic pathology appears ruled out w CT being OK; does not fit symptomatically or exams as PUD. question of "free air" causing referred pain seems highly unlikely as surgical eval and review of films by in- house radiology show no free air/air in the wall (for what it's worth, i do not see free air on my review either). -CT chest ---if negative, then treat aggressively as MSK (OMT, lidocaine, voltaren gel, muscle relaxant) SMA aneurysm -appearing asymptomatic. vascular surgery eval pending. assess vascular risks (follow BP, check lipids, A1c) DVT proph -lovenox
[2016-10-16] MEDS: SUCRALFATE 1 GM/10 ML UDC PO SCH ×3 (14:21→20:52)
--- NOTE | 2016-10-16 15:08 | Surgery Consultation ---
Consultation Date of Service Oct 16, 2016. Chief Complaint SMA aneurysm/dissection History of Present Illness The patient is a 61 year old male without chronic medical problems, admitted d/ t L lateral chest pain and flank pain which developed suddenly last evening, seen in consultation today for SMA aneurysm/dissection noted on CTA. Pt denies any injury and states pain worse with movement and deep breathing. Pt states feeling improved today, but not completely resolved. Denies KENDRICK, fever, chills, SOB, abd pain, N/V, rest pain, claudication, other complaints. CTA demonstrates large caliber arteries and slight dilation of SMA with dissection flap. Vitals Vital Signs Past 12 Hours Date Time Temp Pulse Resp B/P Pulse Ox O2 Delivery O2 Flow Rate FiO2 10/16/16 12:15 Room Air 2.0 Nasal Cannula 10/16/16 11:25 36.7 74 16 131/85 97 Nasal Cannula 2.0 10/16/16 08:00 Room Air 10/16/16 08:00 36.8 65 14 130/85 97 Room Air 10/16/16 05:13 36.8 63 14 132/84 95 Room Air 10/16/16 03:58 37.3 73 22 138/94 96 10/16/16 03:47 73 22 96 Nasal Cannula 2.0 10/16/16 03:29 138/94 10/16/16 03:17 71 22 96 10/16/16 02:58 150/102 Allergies Coded Allergies: No Known Allergies (Unverified , 10/16/16) Home Medications Scheduled Cyanocobalamin (Vitamin B12), PO DAILY Multivitamin (Multivitamin), 1 TAB PO DAILY Scheduled PRN Oxycodone Ir (Roxicodone Ir), 5 MG PO DIRECTED PRN for Pain Zolpidem Tartrate (Ambien), 10 MG PO HS PRN for Sleep Problem List Medical Problems: (1) Left flank pain Surgical / Medical History Hx Cardiac Surgery: No Hx Abdominal Surgery: No Hx Cancer Surgery: No Hx Thoracic Surgery: No Hx Orthopedic: Yes Hx Urinary Tract Surgery: No Family History + HTN Social History Smoking Status: Never Smoker Hx Tobacco Use In Past Year?: No Hx Alcohol Use - Type & Amnt: Yes (beer. couple a day) Review of Systems Constitutional: No chills, No fever, No malaise Skin: No change in color Eyes: No visual changes ENMT: No sore throat Respiratory: No KENNEDY, No cough, No hemoptysis, No short of breath Cardiovascular: + chest pain, No edema, No intermittent claudication, No palpitations, No syncope Gastrointestinal: No abdominal pain, No appetite changes, No nausea, No vomiting Neurologic: No dizziness, No headache, No lethargy, No numbness, No tingling Physical Exam Constitutional: General Apperance: heathly-appearing, well-nourished, well-developed Level of Distress: NAD Psychiatric: Mental Status: active & alert, normal mood, normal affect Orientation: oriented except where noted, to time, to place, to person Memory: recent memory normal, remote memory normal Head: normocephalic, atraumatic Eyes: EOM: EOMI ENMT: normal ENT inspection, hearing grossly normal Neck: supple, trachea midline Lungs: Respiratory effort: no dyspnea Auscultation: no wheezing, no rales/crackles, no rhonchi, decreased breath sounds Cardiovascular: Apical Impulse: not displaced Heart Auscultation: RRR, no rubs, no gallops Peripheral Pulses: Pulses: full and equal, in all extremities except if noted Bruits: none appreciated Carotid Pulse: normal on the left, normal on the right Brachial Pulses: normal on the left, normal on the right Radial Pulse: normal on the left, normal on the right Femoral Pulse: normal on the left, normal on the right Posterior Tibialis Pulse: normal on the left, normal on the right Dorsalis Pedis Pulse: normal on the left, normal on the right Abdomen: Bowel Sounds: normal Inspection & Palpation: soft, non-distended, no tenderness, guarding & rebound Musculoskeletal: normal strength (5/5 throughout), normal tone Extremities: Upper Right: no cyanosis, no edema, no varicosities Upper Left: no cyanosis, no edema, no varicosities Lower Right: no cyanosis, no edema, no varicosities Lower Left: no cyanosis, no edema, no varicosities Neurologic: Cranial Nerves: grossly intact Sensation: grossly intact Assessment and Plan ASSESSMENT and PLAN: SMA aneurysm/dissection Pt's CTA reviewed by Dr Chan. Small area of dissection in large caliber arteries. Pt asymptomatic. No vascular surgical intervention recommended at this time. Recommend daily 81mg ASA therapy and repeat CTA in 6 months with office visit to discuss. Pt aware and agreeable. present as well. Please call if needed.
[2016-10-16 16:00] VITALS: O2SAT 97
--- NOTE | 2016-10-16 16:21 | DIAGNOSTIC IMAGING REPORT ---
CT ANGIOGRAPHY OF THE CHEST, PULMONARY EMBOLUS PROTOCOL CLINICAL HISTORY: Left lower chest pain. COMPARISON STUDY: Chest radiograph and CTA of the chest abdomen and pelvis October 16, 2016. TECHNIQUE: Following IV administration of 116 mL of Optiray-320, helical axial images of the chest were obtained utilizing the pulmonary embolus protocol. Maximal intensity projections and sagittal and coronal reformats were viewed on an independent 3D workstation. IV contrast was administered without complication. CT DOSE: 688.25 mGy.cm FINDINGS: No pulmonary emboli are identified although the segmental and subsegmental pulmonary arteries are suboptimally assessed due to respiratory motion. The heart is mildly enlarged. There is mild dilatation of the ascending aorta which measures 4.2 cm. There is no pericardial effusion. There are no enlarged thoracic lymph node. There is a trace left pleural effusion. There are bilateral lower lobe opacities. These have increased. No pneumothorax is present. The bony thorax and visualized portions of the upper abdomen are unremarkable. IMPRESSION: 1. No pulmonary emboli identified although the segmental and subsegmental pulmonary arteries are suboptimally assessed due to respiratory motion. 2. Trace left pleural effusion with bilateral lower lobe opacities. The appearance favors atelectasis. Pneumonia could appear similar but is considered less likely. 3. Moderate cardiomegaly and mild dilatation of the ascending aorta. No dissection of the thoracic aorta. Electronically signed by: Torsten Hardy M.D. 10/16/2016 4:20 PM Dictated Date/Time: 10/16/2016 4:04 PM
[2016-10-16] MEDS: MoRPHine SULFATE 4 MG/ML 1 ML CARP\\VIAL IV PRN ×2 (16:33→19:04)
[2016-10-16] MEDS ORDERED: ASPIRIN 81 MG ECTAB PO STA (19:38)
[2016-10-16] MEDS ORDERED: DIAZEPAM 5MG TAB PO PRN (19:45)
[2016-10-16] MEDS ORDERED: DIAZEPAM 5MG TAB PO ONE (19:45)
[2016-10-16 19:58] VITALS: BP 130/82; PULSE 70; TEMP 36.5; O2SAT 94
[2016-10-16 20:00] VITALS: O2SAT 97
[2016-10-16] MEDS: PANTOprazole INJ 40 MG in SYRINGE 0 ML IV SCH (20:52)
[2016-10-17 00:07] VITALS: BP 122/74; PULSE 69; TEMP 36.5; O2SAT 94
[2016-10-17] MEDS: NSS + 20MEQ KCL 1000ML 1,000 ML IV SCH (01:11)
[2016-10-17 04:56] VITALS: BP 123/82; PULSE 64; TEMP 36.2; O2SAT 96
[2016-10-17 07:02] LABS: BASO % 0.3 %; BASO ABS # 0.02 K/uL (0-0.2); COMPLETE YES; EOS % 3.7 %; HEMATOCRIT 40.6 % (42-52); IG% 0.8 %; LYMPH % 20.8 %; LYMPH ABS # 1.35 K/uL (1.2-3.4); MEAN CELL VOLUME 94.6 fL (80-100); MEAN CORPUSCULAR HEMOGLOBIN 32.2 pg (25-34); MEAN PLATELET VOLUME 10.9 fL (7.4-10.4); MONO % 8.8 %; NEUT % 65.6 %; PLATELET COUNT 175 K/uL (130-400); RED BLOOD COUNT 4.29 M/uL (4.7-6.1); WHITE BLOOD COUNT 6.48 K/uL (4.8-10.8)
[2016-10-17 07:22] VITALS: BP 112/75; PULSE 55; TEMP 36.5; O2SAT 95
[2016-10-17 07:34] LABS: BUN/CREATININE RATIO 17.7 (10-20); CALCIUM 8.4 mg/dl (8.5-10.1); CREATININE 0.86 mg/dl (0.60-1.40); ESTIMATED AVERAGE GLUCOSE 85 mg/dl; HA1C FLAG Normal (Normal); MAGNESIUM 2.3 mg/dl (1.8-2.4); POTASSIUM 4.2 mmol/L (3.5-5.1)
[2016-10-17 07:36] LABS: CHOLESTEROL/HDL RATIO 3.6
[2016-10-17] MEDS: PANTOprazole INJ 40 MG in SYRINGE 0 ML IV SCH (08:10)
[2016-10-17] MEDS: SUCRALFATE 1 GM/10 ML UDC PO SCH (08:11)
[2016-10-17] MEDS: ENOXAPARIN 40 MG/0.4 ML SYR SQ SCH ×2 (08:13→08:23)
[2016-10-17] MEDS: DICLOFENAC SOD 1% GEL 100 GM TUBE EXT SCH (08:25)
[2016-10-17] MEDS ORDERED: LIDODERM (LIDOCAINE) PATCH 5% TD SCH (09:00)
[2016-10-17] MEDS ORDERED: ASPIRIN 81 MG ECTAB PO SCH (09:00)
[2016-10-17] MEDS ORDERED: ASPEC81 PO (09:56)
[2016-10-17] MEDS ORDERED: LPT40 PO (09:56)
[2016-10-17] MEDS ORDERED: VLTG EXT (09:56)
--- NOTE | 2016-10-17 10:10 | Discharge Instructions ---
Discharge Instructions Admission Reason for Admission: Left Flank Pain Discharge Discharge Diagnosis / Problem: rib related pain from intercostal muscle spasm Discharge Goals Goal(s): Diagnostic testing, Therapeutic intervention Activity Recommendations Activity Limitations: resume your previous activity . Instructions / Follow-Up Instructions / Follow-Up the chest / flank pain, after extensive workup and review, turned out to be due to rib muscle spasm. this can create a true "10/10" pain because when muscles are in spasm, they send a signal to your brain that they're being "torn" and every time you breathe it stretches rib muscles, generating that signal. fortunately with an extensive workup, there did not appear to be any lung problems (pneumonia, fluid, infection, tumor, clot) causing the pain, no upper abdominal problems (ruptured organ, spleen or stomach issues), no blood vessel problems (while we do have a few aneurysm things to keep an eye on - see below - they're all asymptomatic problems to be managed rather than something that was causing your symptoms), and no skin issues (if this was going to be a weird case of shingles, it would've broken into a rash by now). about the only thing we didn't evaluate for was a pinched nerve in your thoracic spine - - and since your symptoms improved treating this as a spasm, this sort of problem really wouldn't fit your symptoms. incidentally, we found a few small problems that need to be managed and followed : -aneurysm of the superior mesenteric artery -this is one of the arteries coming off your aorta (main blood vessel) that feeds your intestines. -contrary to "word on the street" definitions, an aneurysm is not a ruptured blood vessel - it is a bulge that is caused by a weak point in the wall (think like when a garden hose has a bubble off the side - not broken open, but weaker) . yours is small but does look there was a small tear in the artery wall at some point, which your body clotted up. -to manage this, we'll have you on a baby aspirin (81mg) a day to protect from further clotting, and atorvastatin (lipitor) 40mg a day to stabilize the plaque that's already in the artery wall. while it's totally asymptomatic right now, and likely to be that way indefinitely, if you were to get sudden abdominal pain or anything similar, we'd want you to get checked out right away -Dr Chan of [facility] (office over by Sara// Bernice Ruiz) will need to recheck you about every 6 months to make sure things don't progress to where an intervention is needed -aneurysm of the aorta -this is the main blood vessel that comes off your heart - it has a bulge in it as well -- the management again is aspirin and atorvastatin; as well as blood pressure management (although your blood pressures here have been good - we'd definitely recommend you check a few times a month just to make sure you' re not seeing anything consistent above about 130/85) -it will need periodic follow up as well - which Dr Chan can keep an eye on. as we discussed, we'll also want you in with a family doc in the near future to keep a separate eye on these issues, as well as keeping you up to date with general preventative care. eating healthy (mostly fruits, vegetables and lean meats, while avoiding bad fats (saturated) and bad carbs (simple/bready/sugary/ starchy) also goes a long way to keeping healthy. when you're in more of an "off-season" at work - it would also be hugely helpful to do some regular exercise. for "housekeeping" purposes, you should have labs done in about three months after starting the lipitor try to use less anti-inflammatories for your knee- over time, they can be hard on blood vessels as well as your stomach. you can try alternating with tylenol (to get a similar effect with a different mechanism of how it works - just stay under 2000mg of tylenol a day) or talk with your orthopedic surgeon if things are still not going well. Current Hospital Diet Patient's current hospital diet: Regular Diet Discharge Diet Recommended Diet: Regular Diet Pending Studies Studies pending at discharge: no Laboratory Results Hemoglobin A1c Test 10/17/16 06:30 Range/Units Estimated Average Glucose 85 mg/dl Hemoglobin A1c 4.6 4.5-5.6 % Lipid Panel Test 10/17/16 06:30 Range/Units Triglycerides Level 148 0-150 mg/dl Cholesterol Level 160 0-200 mg/dl HDL Cholesterol 44 mg/dl Cholesterol/HDL Ratio 3.6 LDL Cholesterol, Calculated 86 mg/dl remember that even though your cholesterol numbers were good, we have you on the lipitor (atorvastatin) to stabilize the aneurysm/artery wall issues we identified. Medical Emergencies . Who to Call and When: Medical Emergencies: If at any time you feel your situation is an emergency, please call 911 immediately. . Non-Emergent Contact Non-Emergency issues call your: Primary Care Provider . . "Provider Documentation" section prepared by Denys Vazquez. VTE Core Measure Inpt VTE Proph given/why not?: SCD's
[2016-10-17 10:32] VITALS: BP 112/75; PULSE 55; TEMP 36.5; O2SAT 95
--- NOTE | 2016-10-17 13:49 | Discharge Summary ---
Discharge Summary Admission Date: Oct 16, 2016 at 19:36 Discharge Date: Oct 17, 2016 Procedures: echo: Interpretation Summary * Name: EBER JUAN Study Date: 10/16/2016 10:17 AM BP: 130/85 mmHg * Patient Location: [facility] HR: 65 * : 1955 (M/d/yyyy) Gender: Male Height: 74 in * Age: 61 yrs Ethnicity: [place] Weight: 251 lb * Ordering Physician: Chad Quiroz * Referring Physician: Self, Referred * Performed By: Shala De La Cruz RDCS * * Reason For Study: CHEST PAIN * BSA: 2.4 m2 * History: CHEST PAIN * -- Conclusions -- * Left ventricular systolic function is normal. * No regional wall motion abnormalities noted. * Ejection Fraction = 55-60%. * There is borderline concentric left ventricular hypertrophy. * Mild aortic root dilatation. Procedure Details * A contrast injection of Definity was performed to improve assessment of LV function. * Contrast was injected into an intravenous site in the left arm. * One vial of Definity ultrasound contrast was diluted in normal saline to a total volume of 10 ml. A total of '3' ml of solution was administered during imaging. * Lot # [id number] of Definity utilized for procedure. * Expiration date 1 MAR 23. * The attending nurse who injected the contrast agent was MART TAYLOR RN. Left Ventricle * The left ventricle is normal in size. * There is borderline concentric left ventricular hypertrophy. * Ejection Fraction = 55-60%. * Left ventricular systolic function is normal. * No regional wall motion abnormalities noted. Right Ventricle * The right ventricle is not well visualized. * Right ventricular function cannot be assessed due to poor image quality. Atria * Borderline left atrial enlargement. * Right atrium not well visualized. * There is no evidence of atrial septal defect, but resolution does not allow assessment for a patent foramen ovale. Mitral Valve * The mitral valve is grossly normal. * There is no mitral valve stenosis. * Significant mitral regurgitation is absent. Tricuspid Valve * The tricuspid valve is not well visualized. * Significant tricuspid regurgitation is absent. Aortic Valve * The aortic valve is trileaflet. * The aortic valve opens well. * No hemodynamically significant valvular aortic stenosis. * There is no significant aortic regurgitation. Pulmonic Valve * The pulmonary valve is not well seen, but the Doppler examination is normal without significant regurgitation or stenosis. Great Vessels * Mild aortic root dilatation. Pericardium/Pleural * There is no pericardial effusion. Great Vessels * Normal inferior vena cava size and collapsability with sniff indicates a normal right atrial pressure of 3 mmHg [~ rep ct add3]] CT ANGIOGRAPHY OF THE CHEST, PULMONARY EMBOLUS PROTOCOL CLINICAL HISTORY: Left lower chest pain. COMPARISON STUDY: Chest radiograph and CTA of the chest abdomen and pelvis October 16, 2016. TECHNIQUE: Following IV administration of 116 mL of Optiray-320, helical axial images of the chest were obtained utilizing the pulmonary embolus protocol. Maximal intensity projections and sagittal and coronal reformats were viewed on an independent 3D workstation. IV contrast was administered without complication. CT DOSE: 688.25 mGy.cm FINDINGS: No pulmonary emboli are identified although the segmental and subsegmental pulmonary arteries are suboptimally assessed due to respiratory motion. The heart is mildly enlarged. There is mild dilatation of the ascending aorta which measures 4.2 cm. There is no pericardial effusion. There are no enlarged thoracic lymph node. There is a trace left pleural effusion. There are bilateral lower lobe opacities. These have increased. No pneumothorax is present. The bony thorax and visualized portions of the upper abdomen are unremarkable. IMPRESSION: 1. No pulmonary emboli identified although the segmental and subsegmental pulmonary arteries are suboptimally assessed due to respiratory motion. 2. Trace left pleural effusion with bilateral lower lobe opacities. The appearance favors atelectasis. Pneumonia could appear similar but is considered less likely. 3. Moderate cardiomegaly and mild dilatation of the ascending aorta. No dissection of the thoracic aorta. Electronically signed by: Torsten Hardy M.D. 10/16/2016 4:20 PM Dictated Date/Time: 10/16/2016 4:04 PM [~ rep ct add3]] CT ANGIOGRAM OF THE CHEST, ABDOMEN, AND PELVIS COMBO CLINICAL HISTORY: Atypical chest pain. COMPARISON STUDY: Chest x-ray dated 10/16/2016. TECHNIQUE: Before and following the IV administration of 118 cc of Optiray 320, CT angiogram of the chest, abdomen, and pelvis was performed from the thoracic inlet to the proximal femora. Images are reviewed in the axial, sagittal, and coronal planes. 3-D MIPS images are created and assessed. IV contrast was administered without complication. Automated dose control exposure was utilized. CT DOSE: 3193.33 mGy.cm FINDINGS: CHEST: Thyroid: Imaged portions of the thyroid gland are normal in size and attenuation. Thoracic aorta: No intramural hematoma is identified on the unenhanced series. There is minimal atherosclerotic calcification of the thoracic aorta, which is normal in course caliber and demonstrates standard 3-vessel arch anatomy. No dissection is seen. The arch vessels are widely patent. Heart: The heart is enlarged and without pericardial effusion. There are coronary artery calcifications. The pulmonary trunk is normal in caliber. The pulmonary vessels are not well opacified. Lungs and pleural spaces: There are low lung volumes and bibasilar atelectasis. A trace left pleural effusion is seen. The trachea and central airways are clear. Mediastinum: There is no mediastinal lymphadenopathy. Elisa: Clear. Axillae: There is no axillary lymphadenopathy. Bony thorax: The bony thorax appears intact. No destructive bony lesions are identified. Fusion hardware is noted in the lower cervical spine. ABDOMEN AND PELVIS: Liver: The contrast-enhanced liver is normal in size, contour, and attenuation. There is no intrahepatic biliary ductal dilatation. A 9 mm hypervascular focus is noted in the right lower image #300. The main portal veins appear patent. Mixing artifact is incidentally noted in the superior mesenteric vein. Gallbladder: Unremarkable. Spleen: Normal in size and attenuation noting heterogeneous arterial phase enhancement. Pancreas: Unremarkable. Adrenal glands: Unremarkable. Kidneys: No renal calculi are identified on the unenhanced series. The contrast enhanced kidneys are normal in size and without hydronephrosis. The kidneys enhance symmetrically. Abdominal aorta and iliac arteries: There is mild atherosclerotic calcification of the abdominal aorta and iliac arteries. The abdominal aorta is normal in caliber. The abdominal aorta and iliac arteries are widely patent. No dissection is seen. Major branches of the abdominal aorta: The celiac trunk, superior mesenteric, and inferior mesenteric arteries are widely patent. 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 There is a focal/contained dissection. The vessel is widely patent. The dissection originates approximately 2.7 cm from the abdominal aorta and extends at least 2.5 cm in length. This is best seen on axial image #361. Hepatic arterial anatomy is conventional. The splenic artery is patent. Single bilateral renal arteries are widely patent. Stomach and bowel: There is a small hiatal hernia. The stomach and duodenum are otherwise normal in configuration. There is no bowel obstruction. There are scattered colonic diverticula without CT evidence of acute diverticulitis. Colonic interposition is incidentally noted. The appendix is well-visualized and normal. Peritoneum: There is no intraperitoneal free air or abdominal ascites. There is a fat-containing umbilical hernia. Lymphadenopathy: None. Pelvic viscera: The bladder, prostate, and seminal vesicles are normal as visualized. Skeletal structures: There is mild lumbosacral spondylosis. No destructive bony lesions are seen. IMPRESSION: 1. There is no aneurysm or dissection identified involving the thoracic or abdominal aorta. 2. 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 The vessel is widely patent. 3. Otherwise unremarkable CT angiogram of the major branches of the abdominal aorta. 4. Low lung volumes and significant bibasilar atelectasis. 5. Trace left pleural effusion. 6. There are no acute infectious or inflammatory findings in the abdomen or pelvis. 7. There is a 9 mm hypervascular focus in the right lobe of the liver. This is indeterminant and may represent a flash filling hemangioma. Consider follow-up with a nonemergent ultrasound of the liver for further assessment. 8. Cardiomegaly. 9. Additional findings as above. Electronically signed by: Brooks Spencer M.D. 10/16/2016 7:35 AM Dictated Date/Time: 10/16/2016 7:22 AM SINGLE VIEW CHEST CLINICAL HISTORY: Atypical chest pain. FINDINGS: An AP, portable, upright chest radiograph is obtained. No prior studies are available for comparison at the time of dictation. The examination is degraded by portable technique and patient rotation. The heart is enlarged. The pulmonary vasculature is noncongested. There are low lung volumes with bibasilar atelectasis. No airspace consolidation or large pleural effusion is identified. No pneumothorax is seen. The bony thorax is grossly intact. Fusion hardware is partially imaged in the lower cervical spine. IMPRESSION: 1. Cardiomegaly without radiographic evidence of congestive failure. 2. Low lung volumes with bibasilar atelectasis. There is no airspace consolidation typical for pneumonia or large pleural effusion. Electronically signed by: Brooks Spencer M.D. 10/16/2016 7:09 AM Dictated Date/Time: 10/16/2016 7:08 AM Last Resulted CBC 10/17/16 06:30 Red Blood Count 4.29, Mean Corpuscular Volume 94.6, Mean Corpuscular Hemoglobin 32.2, Mean Corpuscular Hemoglobin Concent 34.0, Mean Platelet Volume 10.9, Neutrophils (%) (Auto) 65.6, Lymphocytes (%) (Auto) 20.8, Monocytes (%) (Auto) 8.8, Eosinophils (%) (Auto) 3.7, Basophils (%) (Auto) 0.3, Neutrophils # (Auto) 4.25, Lymphocytes # (Auto) 1.35, Monocytes # (Auto) 0.57, Eosinophils # (Auto) 0.24, Basophils # (Auto) 0.02 Last Resulted BMP 10/17/16 06:30 Consultations: GI vascular surgery general surgery Medication Reconciliation New Medications: Aspirin (Aspirin EC Low Dose) 81 Mg Ectab 1 TAB PO DAILY, #30 TAB Atorvastatin (Atorvastatin Calcium) 40 Mg Tab 1 TAB PO DAILY, #30 TAB Diclofenac Sod (Voltaren) 100 Appln/100 Gm Gel 1 APPLN EXT QID, #100 GM Continued Medications: Cyanocobalamin (Vitamin B12) 1,000 Mcg Tab PO DAILY Multivitamin (Multivitamin) Tab 1 TAB PO DAILY, TAB Oxycodone Ir (Roxicodone Ir) 5 Mg Tab 5 MG PO DIRECTED PRN for Pain, TAB Zolpidem Tartrate (Ambien) 10 Mg Tab 10 MG PO HS PRN for Sleep, TAB Discharge Exam Physical Exam: General Appearance: no apparent distress Eyes: EOMI ENT: hearing grossly normal Neck: trachea midline Respiratory/Chest: lungs clear, normal breath sounds, no respiratory distress, no accessory muscle use, + pertinent finding (rib ROM much improved L side - still slightly more favoring exhalation than the R - but nearly equal and far improved from yesterday) Cardiovascular: regular rate, rhythm Extremities: normal inspection Neurologic/Psychiatric: right of way man II-XII nml as tested, alert, normal mood/affect Skin: normal color, warm/dry Hospital Course L lower chest pain -improved - extensive w/u ruled out other pathology, sx and exam also fit best with this. see above w/u and instructions to pt, as well as yesterday's notes SMA aneurysm -appearing asymptomatic. vascular surgery eval yielded med management and outpt f/u - reviewed sx w pt. started asa and lipitor. -lipids and A1c reviewed and reasonable. aortic aneurysm -same med management as above DVT proph -lovenox utilized during stay stable for home recommend PCP in short order - he declines and notes that he'll set up once good for him; outlined importance of preventative care/etc - he expresses understanding. also recommend CMP in 3 months, vascular surgery f/u in 6 months as per their recommendation Total Time Spent: Greater than 30 minutes This includes examination of the patient, discharge planning, medication reconciliation, and communication with other providers. Discharge Instructions Please refer to the electronic Patient Visit Report (Discharge Instructions) for additional information. Additional Copies To Robson Chan M.D.
--- NOTE | 2016-10-23 21:26 | EMERGENCY ROOM VISIT NOTE ---
History First contact with patient: 00:12 Chief Complaint: CHEST PAIN Stated Complaint: CHEST PAIN History of Present Illness The patient is a 61 year old male who presents to the Emergency Room with complaints of left-sided chest pain for the past hour described as severe, 8 out of 10. The girlfriend gave him aspirin, 4 81 mg tablets just prior to arrival. Patient just had knee surgery a few months ago for a knee replacement that was work-related. He does not smoke. No recent travel. Nothing makes the pain better or worse. Patient denies dyspnea, abdominal pain, fever, chills , cough, congestion, leg swelling. He states the pain occasionally radiates up to his shoulder. No family history of heart disease. He does not smoke. No history of stress test or echocardiogram. He does not routinely see a doctor. Review of Systems See HPI for pertinent positives & negatives. A total of 10 systems reviewed and were otherwise negative. Past Medical/Surgical History Medical Problems: (1) Intractable pain (2) Left flank pain Knee surgery Social History Smoking Status: Never Smoker Smokeless Tobacco Use: No Alcohol Use: occasionally Drug Use: none Marital Status: in relationship Housing Status: lives with family Current/Historical Medications Scheduled Aspirin (Aspirin EC Low Dose), 1 TAB PO DAILY Atorvastatin (Atorvastatin Calcium), 1 TAB PO DAILY Cyanocobalamin (Vitamin B12), PO DAILY Diclofenac Sod (Voltaren), 1 APPLN EXT QID Multivitamin (Multivitamin), 1 TAB PO DAILY Scheduled PRN Oxycodone Ir (Roxicodone Ir), 5 MG PO DIRECTED PRN for Pain Zolpidem Tartrate (Ambien), 10 MG PO HS PRN for Sleep Allergies Coded Allergies: No Known Allergies (Unverified , 10/16/16) Physical Exam Vital Signs Date Time Temp Pulse Resp B/P Pulse Ox O2 Delivery O2 Flow Rate FiO2 10/16/16 03:17 71 22 96 10/16/16 02:58 150/102 10/16/16 02:47 61 15 96 10/16/16 02:28 126/87 10/16/16 02:17 62 14 95 10/16/16 02:02 120/97 10/16/16 01:47 78 13 97 10/16/16 01:42 71 18 96 Nasal Cannula 2.0 10/16/16 01:28 127/83 10/16/16 01:12 80 16 139/88 96 Nasal Cannula 2.0 10/16/16 01:12 83 16 97 10/16/16 01:10 139/88 10/16/16 00:37 82 16 136/95 95 Nasal Cannula 2.0 10/16/16 00:37 95 10/16/16 00:36 10/16/16 00:21 91 20 127/104 95 Nasal Cannula 2.0 10/16/16 00:20 88 21 134/95 95 Room Air 2.0 10/16/16 00:20 127/104 10/16/16 00:19 96 Nasal Cannula 2.0 10/16/16 00:19 134/95 10/16/16 00:17 79 10/16/16 00:13 37.3 88 34 150/127 94 Room Air 10/16/16 00:12 Room Air 10/16/16 00:11 150/127 Physical Exam VITALS: Vitals are noted on the nurse's note and reviewed by myself. Vital signs stable. GENERAL: Pleasant male who appears in pain, in no acute distress, nondiaphoretic , well-developed well-nourished. SKIN: The skin was without rashes, erythema, edema, or bruising. There is no tenting of the skin. Capillary reflex less than 2 seconds. HEAD: Normocephalic atraumatic. EARS: External auditory canals clear, tympanic membranes pearly banerjee without erythema or effusion bilaterally. EYES: Pupils equal round and reactive to light and accommodation. Conjunctivae without injection, sclerae without icterus. Extraocular movements intact. NOSE: Patent, turbinates without inflammation or discharge. MOUTH: Mucous membranes moist. Pharynx without erythema or exudate. Uvula midline. Airway patent. Tongue does not deviate. NECK: Supple without nuchal rigidity. No lymphadenopathy. No thyromegaly. Cervical spine is nontender. No JVD. HEART: Regular rate and rhythm without murmurs gallops or rubs. Left-sided chest nontender to palpation LUNGS: Clear to auscultation bilaterally without wheezes, rales or rhonchi. No dullness to percussion. No retractions or accessory muscle use. ABDOMEN: Positive bowel sounds x 4. Normal tympanic percussion. Soft, nontender, without masses or organomegaly. Briggs sign negative. No guarding or rebound tenderness. MUSCULOSKELETAL: No muscle atrophy, erythema, or edema noted. NEURO: Patient was alert and oriented to person place and time. Normal sensation to light and sharp touch. No focal neurological deficits. Medical Decision & Procedures Laboratory Results Test 10/16/16 00:16 10/16/16 00:24 10/16/16 00:32 10/16/16 01:42 Erythrocyte Sedimentation Rate 10 mm/hr (0-14) Prothrombin Time 10.4 SECONDS (9.0-12.0) Prothromb Time International Ratio 1.0 (0.9-1.1) Activated Partial Thromboplast Time 27.8 SECONDS (21.0-31.0) Partial Thromboplastin Ratio 1.1 Total Bilirubin 1.2 mg/dl (0.2-1) Direct Bilirubin 0.2 mg/dl (0-0.2) Aspartate Amino Transf (AST/SGOT) 9 U/L (15-37) Alanine Aminotransferase (ALT/SGPT) 29 U/L (12-78) Alkaline Phosphatase 91 U/L (45-117) C-Reactive Protein 2.41 mg/dl (0-0.29) Total Protein 7.8 gm/dl (6.4-8.2) Albumin 3.8 gm/dl (3.4-5.0) Lipase 248 U/L (73-393) Bedside Hemoglobin 15.6 g/dl (14.0-18.0) Bedside Hematocrit 46 % (42-52) Bedside Sodium 140 mEq/L (135-144) Bedside Potassium 3.9 mEq/L (3.3-5.0) Bedside Chloride 98 mEq/L (101-112) Bedside Total CO2 26 mEq/l (24-31) Bedside Blood Urea Nitrogen 23 mg/dl (7-18) Bedside Creatinine 1.2 mg/dl (0.6-1.3) Bedside Glucose (other) 113 mg/dl (70-99) Bedside Ionized Calcium (Florinda) 1.20 mmol/l (1.12-1.32) Bedside Troponin I 0.000 ng/ml (0-0.045) Bedside Lactic Acid Venous 0.82 mmol/L (0.90-1.70) Medications Administered Medications (Trade) Dose Ordered Sig/Flynn Route Start Time Stop Time Status Last Admin Dose Admin Morphine Sulfate (MoRPHine SULFATE INJ) 4 mg NOW STAT IV 10/16/16 00:27 10/16/16 00:30 DC 10/16/16 00:39 4 MG Ondansetron HCl 4 mg 4 mg NOW STAT IV 10/16/16 00:27 10/16/16 00:30 DC 10/16/16 00:39 4 MG Sodium Chloride (Nss 500ml) 500 ml @ 999 mls/hr Q31M STAT IV 10/16/16 00:27 10/16/16 00:57 DC 10/16/16 00:39 999 MLS/HR Hydromorphone HCl (Dilaudid Inj) 1 mg NOW STAT IV 10/16/16 01:22 10/16/16 01:24 DC 10/16/16 01:31 1 MG Ciprofloxacin/ Dextrose (Cipro / D5w) 400 mg NOW STAT IV 10/16/16 02:45 10/16/16 02:46 DC 10/16/16 02:58 400 MG Metronidazole (Flagyl / Nss) 500 mg NOW STAT IV 10/16/16 02:45 10/16/16 02:46 DC 10/16/16 02:58 500 MG ED Course Prior records/ancillary studies reviewed. Triage Nursing notes reviewed. Additional history obtained from friend. The patient's history was concerning for chest pain. Differential diagnosis: Etiologies such as cardiac ischemia, aortic dissection, pulmonary embolism, pneumonia, pneumothorax, musculoskeletal, infections, pericarditis, myocarditis , esophageal rupture, gastrointestinal, as well as others were entertained. Physical examination: As above. ER treatment provided: morphine, zofran On reassessment the patient felt better. Diagnostic interpretation by me: The electrocardiogram was normal sinus, no rales, right bundle branch block, left anterior vesicular block, no acute ST-T wave changes. Rate of 80. Impression right bundle branch block with left anterior vesicular interpreted by myself The labs revealed creatinine 1.2 Negative troponin. Imaging studies: Chest x-ray slightly widened mediastinum per my interpretation with no acute consolidation or pneumothorax Patient was sent for dissection study and read by radiology CTA CHEST: No aortic aneurysm or dissection. Trace left pleural fluid. Cardiomegaly. Dependent atelectasis/pneumonitis. Cervical fusion plate. CTA ABDOMEN & PELVIS: No aortic aneurysm or aortic dissection. 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 Apparent small filling defect in mesenteric vein segment. ?? mixing artifact. Differential could include thrombus. Couple small bowel segment in the pelvis with peripherally located air. Could be peripheral intraluminal air vs. early pneumatosis. Too small to characterize low attenuation foci in the kidney Small fatty liver with small enhancing focus in the right lobe. No radiodense gallstones or pancreatitis. Unremarkable appendix. Radiologist: Leandro Naik M.D. Study ready at 01:13 and initial results transmitted at 01:33 Critical Value Communications Clear Time Type Notes 10/16/16 01:34 Call Doctor Regarding Other, called Nahomy Joy PA-C on 01:34 (-05:00) Consultation: A consultation was placed with Dr. Chan and states this is not a surgical case and the patient can be admitted to medicine here and will be consulted on the case. I spoke with the hospitalist, Dr. Maldonado. The case was discussed and diagnostics were reviewed. The patient was evaluated in the ER for further treatment. Dr. Singh was also consulted about the CT reading and states there is no free air and he recommends antibiotics. Exam and history seem consistent with chest pain and SMA dissection. Patient will be evaluated by medicine for possible admission. Patient had negative troponin. Stable H&H. I did consult vascular and states there is nothing surgical at this time.By the evaluation outlined above emergent etiologies such as pulmonary embolism, pneumonia, pneumothorax, infections, pericarditis, myocarditis, gastrointestinal, as well as others were deemed relatively unlikely. The pt informed about the findings as listed above. All questions were answered and pleased with the treatment. case reviewed with my Attending. Medical Decision As above Impression Primary Impression: Precordial chest pain Additional Impression: Dissection of mesenteric artery Departure Information Dispostion Being Evaluated By Hospitalist Condition FAIR Prescriptions Aspirin (Aspirin EC Low Dose) 81 Mg Ectab 1 TAB PO DAILY, #30 TAB Prov: Denys Vazquez D.O. 10/17/16 Atorvastatin (Atorvastatin Calcium) 40 Mg Tab 1 TAB PO DAILY, #30 TAB Prov: Denys Vazquez D.O. 10/17/16 Diclofenac Sod (Voltaren) 100 Appln/100 Gm Gel 1 APPLN EXT QID, #100 GM Prov: Denys Vazquez D.O. 10/17/16 Referrals No Doctor, Assigned (PCP) Patient Instructions A Signature Page, My [facility]
== END 2016-10-17 11:45 | disposition home or self-care (01) | DRG 299 ==
LOC: ENRESERVTM → ENRESERVDT → C.EDB 00:09 → C.MED 03:25 → OBSVTOIN 19:36
PROVIDERS: ADMIT Hospitalist; ATTEND Hospitalist
DX: I77.79 Dissection of other specified artery (principal); I81 Portal vein thrombosis; R07.89 Other chest pain; I72.8 Aneurysm of other specified arteries; R10.9 Unspecified abdominal pain; I71.9 Aortic aneurysm of unspecified site, without rupture; R93.5 Abnormal findings on diagnostic imaging of other abdominal regions, including retroperitoneum; D18.09 Hemangioma of other sites; Z96.651 Presence of right artificial knee joint; Z79.1 Long term (current) use of non-steroidal anti-inflammatories (NSAID); Z79.891 Long term (current) use of opiate analgesic; Z79.899 Other long term (current) drug therapy